=== PATIENT | female | born 1995 | race African-American/Black ===

== ENCOUNTER 2021-08-05 18:11 | Emergency (ER) | payer MEDICAID ==
[~2021-08-05] VITALS: Ht 165.1 cm; Wt 109.0 kg
[2021-08-05] MEDS ORDERED: ONDANSETRON HCL 4MG/2ML INJ IV STA ×2 (18:25→22:17)
[2021-08-05] MEDS ORDERED: MORPHINE SULFATE 4 MG/ML CPJ (NOT FOR IM USE) IV STA ×2 (18:25→22:17)
[2021-08-05] MEDS ORDERED: SODIUM CHLORIDE 0.9% 1,000 ML IV ONE ×2 (18:30→19:45)
[2021-08-05] MEDS ORDERED: LORAZEPAM 2MG/ML CPJ IV ONE (18:30)
[2021-08-05 19:15] LABS: BASOPHILS % 0.8 % (0.0-2.0); EOSINOPHILS % 0.2 % (0.0-5.0); HEMATOCRIT. 37.8 % (36.0-48.0); HEMOGLOBIN. 12.3 g/dL (12.0-16.0); LYMPHOCYTES % 14.8 % (20.0-50.0); MEAN CORPUSCULAR HEMOGLOBIN 26.6 pg (28.0-32.0); MEAN CORPUSCULAR VOLUME 81.7 fL (81.0-99.0); MEAN PLATELET VOLUME 8.3 fl (7.4-10.4); MONOCYTES % 6.2 % (2.0-8.0); PLATELET 403 x1000/uL (130-400); RED BLOOD CELL COUNT 4.63 mill/uL (4.2-5.4); RED CELL DISTRIBUTION WIDTH 15.3 % (11.6-14.6)
[2021-08-05 19:17] LABS: CHLORIDE 106 mEq/L (98-107)
[2021-08-05 19:20] LABS: ETHANOL BLOOD < 10 mg/dL
[2021-08-05 19:22] LABS: HCG SCREEN NEGATIVE
[2021-08-05] MEDS ORDERED: KETOROLAC 30MG/ML VIAL IV STA (22:17)
[2021-08-05 22:27] LABS: CLARITY URINE CLOUDY (CLEAR); COLOR URINE DARK YELLOW (YELLOW); KETONES URINE 1+ (NEGATIVE); LEUKOCYTE ESTERASE URINE NEGATIVE (NEGATIVE); NITRITE URINE NEGATIVE (NEGATIVE); OCCULT BLOOD URINE NEGATIVE (NEGATIVE); PROTEIN URINE 1+ (NEGATIVE); SPECIFIC GRAVITY URINE 1.038 (1.005-1.030)
[2021-08-05 22:40] LABS: *AMPHETAMINES SCREEN URINE NEGATIVE (NEGATIVE); *BARBITURATES SCREEN URINE NEGATIVE (NEGATIVE); *BENZODIAZEPINES SCREEN URINE NEGATIVE (NEGATIVE); *COCAINE SCREEN URINE NEGATIVE (NEGATIVE); METHADONE URINE SCREEN NEGATIVE (NEGATIVE)
[2021-08-05 22:41] LABS: PHENCYCLIDINE URINE SCREEN NEGATIVE (NEGATIVE)
[2021-08-05 22:50] LABS: CANNABINOID URINE SCREEN PRESUMTIVE POSITIVE (NEGATIVE); OPIATES URINE SCREEN PRESUMTIVE POSITIVE (NEGATIVE)
[2021-08-05] MEDS ORDERED: ONDA4TAB11 PO (23:03)
[2021-08-05] MEDS ORDERED: OMEP20CA14 MT (23:03)
[2021-08-05] MEDS ORDERED: POTA10CA42 MT (23:03)
[2021-08-05 23:27] VITALS: BP 144/91
== END 2021-08-06 00:12 | disposition home or self-care (01) ==
LOC: ER 18:11
DX: R10.13 Epigastric pain (principal); E87.6 Hypokalemia; R11.2 Nausea with vomiting, unspecified; J45.909 Unspecified asthma, uncomplicated; F12.10 Cannabis abuse, uncomplicated; Z90.49 Acquired absence of other specified parts of digestive tract
CPT/HCPCS: 36415; 74176; 80053; 80305; 80320; 81003; 83690; 84703; 85025; 96361; 96374; 96375; 96376; 99284; J1885; J2060; J2270; J2405; J7030; Z7610; G0480

== ENCOUNTER 2021-08-17 11:28 | Emergency (ER) | payer MEDICAID ==
[~2021-08-17] VITALS: Ht 165.1 cm; Wt 116.0 kg
[~2021-08-17 11:28] MED LIST: OMEP20CA14 MT; ONDA4TAB11 PO; POTA10CA42 MT
[2021-08-17 11:32] VITALS: BP 142/73
[2021-08-17 11:54] LABS: BASOPHILS % 0.4 % (0.0-2.0); EOSINOPHILS % 5.4 % (0.0-5.0); HEMATOCRIT. 35.5 % (36.0-48.0); HEMOGLOBIN. 11.6 g/dL (12.0-16.0); MEAN CORPUSCULAR HEMOGLOBIN 26.9 pg (28.0-32.0); MEAN CORPUSCULAR VOLUME 82.1 fL (81.0-99.0); MEAN PLATELET VOLUME 8.5 fl (7.4-10.4); MONOCYTES % 4.8 % (2.0-8.0); NEUTROPHILS % 66.4 % (40.0-76.0); PLATELET 317 x1000/uL (130-400); RED BLOOD CELL COUNT 4.32 mill/uL (4.2-5.4); RED CELL DISTRIBUTION WIDTH 15.8 % (11.6-14.6)
[2021-08-17 12:03] LABS: CHLORIDE 110 mEq/L (98-107)
[2021-08-17 12:32] LABS: HCG SCREEN NEGATIVE
[2021-08-17] MEDS ORDERED: IOHEXOL-350 100 ML BOTTLE ONE (13:27)
== END 2021-08-17 14:34 | disposition home or self-care (01) ==
LOC: ER 11:28
DX: K56.2 Volvulus (principal); J45.909 Unspecified asthma, uncomplicated; Z97.5 Presence of (intrauterine) contraceptive device; Z90.49 Acquired absence of other specified parts of digestive tract; Z98.890 Other specified postprocedural states
CPT/HCPCS: 36415; 74178; 80053; 84703; 85025; 99284; Q9967

== ENCOUNTER 2022-04-04 19:28 | Emergency (ER) | payer MEDICAID ==
[~2022-04-04] VITALS: Ht 165.1 cm; Wt 113.0 kg
[2022-04-04 19:39] VITALS: BP 138/68
== END 2022-04-04 21:00 | disposition left against medical advice (07) ==
LOC: ER 19:28
DX: Z53.21 Procedure and treatment not carried out due to patient leaving prior to being seen by health care provider (principal); J45.909 Unspecified asthma, uncomplicated; Z90.49 Acquired absence of other specified parts of digestive tract; Z98.890 Other specified postprocedural states

== ENCOUNTER 2022-05-28 11:23 | Emergency (ER) | payer MEDICAID ==
[~2022-05-28] VITALS: Ht 165.1 cm; Wt 111.0 kg
[2022-05-28] MEDS ORDERED: ONDANSETRON HCL 4MG/2ML INJ IV STA (13:58)
[2022-05-28] MEDS ORDERED: SODIUM CHLORIDE 0.9% 1,000 ML IV ONE (14:00)
[2022-05-28 14:50] LABS: CLARITY URINE CLEAR (CLEAR); COLOR URINE DARK YELLOW (YELLOW); KETONES URINE TRACE (NEGATIVE); LEUKOCYTE ESTERASE URINE NEGATIVE (NEGATIVE); NITRITE URINE NEGATIVE (NEGATIVE); OCCULT BLOOD URINE NEGATIVE (NEGATIVE); PH URINE 6.5 (4.5-8.0); PROTEIN URINE 1+ (NEGATIVE); SPECIFIC GRAVITY URINE 1.023 (1.005-1.030)
[2022-05-28] MEDS ORDERED: ONDA4TAB50 MT (15:24)
[2022-05-28 15:35] LABS: BASOPHILS % 0.5 % (0.0-2.0); EOSINOPHILS % 0.7 % (0.0-5.0); HEMATOCRIT. 38.5 % (36.0-48.0); HEMOGLOBIN. 12.7 g/dL (12.0-16.0); LYMPHOCYTES % 21.6 % (20.0-50.0); MEAN CORPUSCULAR HEMOGLOBIN 27.4 pg (28.0-32.0); MEAN CORPUSCULAR VOLUME 83.2 fL (81.0-99.0); MEAN PLATELET VOLUME 8.1 fl (7.4-10.4); NEUTROPHILS % 70.2 % (40.0-76.0); PLATELET 428 x1000/uL (130-400); RED BLOOD CELL COUNT 4.63 mill/uL (4.2-5.4); RED CELL DISTRIBUTION WIDTH 14.6 % (11.6-14.6)
[2022-05-28 15:41] LABS: CHLORIDE 100 mEq/L (98-107)
[2022-05-28] MEDS ORDERED: CEPH500C2 MT (15:45)
[2022-05-28] MEDS ORDERED: POTASSIUM CHLORIDE 20MEQ TABLET SR PO ONE (15:45)
[2022-05-28] MEDS ORDERED: MAGNESIUM/ALUMINUM HYDROXIDE/SIMETHICONE 30ML UDC PO STA (15:45)
[2022-05-28] MEDS ORDERED: VISCOUS LIDOCAINE 2% 15 ML UDC PO STA (15:45)
[2022-05-28] MEDS ORDERED: KETOROLAC 15MG/ML VIAL IV ONE (16:00)
[2022-05-28] MEDS ORDERED: ONDANSETRON HCL 4MG/2ML INJ IV NR (16:00)
[2022-05-28] MEDS ORDERED: ONDANSETRON HCL 4MG/2ML INJ IV ONE (16:00)
[2022-05-28 16:03] LABS: HCG SCREEN NEGATIVE
[2022-05-28 16:28] VITALS: BP 171/92
== END 2022-05-28 17:18 | disposition home or self-care (01) ==
LOC: ER 11:23
DX: N39.0 Urinary tract infection, site not specified (principal); E87.6 Hypokalemia; R19.7 Diarrhea, unspecified; R11.10 Vomiting, unspecified; J45.909 Unspecified asthma, uncomplicated; F12.10 Cannabis abuse, uncomplicated; Z90.49 Acquired absence of other specified parts of digestive tract; Z98.890 Other specified postprocedural states
CPT/HCPCS: 36415; 80053; 81003; 81025; 83690; 84703; 85025; 96361; 96374; 96375; 96376; 99284; J1885; J2405; J7030